=== PATIENT | female | born 1965 | race Caucasian/White ===

== ENCOUNTER 2025-06-03 15:12 | Outpatient (AMB) | payer OTHER, SELFPAY ==
--- NOTE | 2025-06-03 15:22 | A.OFFPC_ITS ---
Vital Signs 06/03/25 15:28 06/03/25 16:19 Height 5 ft 2 in Weight 233 lb 8 oz BMI 42.7 BP 98/62 118/68 Blood Pressure Location Lt brachial Lt brachial Position Sitting Sitting Respiration 18 Pulse 78 Pulse Source Pulse Oximeter Temp 96.9 F Temp Source Temporal Artery Scan Pulse Oximetry (%) 93 Oxygen Delivery Method Room Air Intake Visit Reasons: Establish Care Wire Inspector Required: No Accompanied by: Self / Same As Patient Allergies No Known Allergies Allergy (Verified 06/03/25 15:45) Medication List - Last Reconciled 06/03/25 by Dalia Stout PA-C acetaminophen 500 mg PO Q6H PRN albuterol sulfate 90 mcg/actuation (Ventolin HFA) 2 puffs inhalation Q4-6H PRN apixaban (Eliquis) 5 mg PO BID aspirin-omeprazole 81-40 mg 1 tab PO DAILY atorvastatin (Lipitor) 80 mg PO BEDTIME ezetimibe 10 mg PO DAILY fluticasone furoate 50 mcg/actuation inhalation glyburide 5 mg PO BID lisinopril 20 mg PO DAILY meloxicam 15 mg PO DAILY metformin 1,000 mg PO BID metoprolol succinate ER 25 mg PO DAILY omeprazole 40 mg PO BID semaglutide (Ozempic) 0.5 mg subcut QWEEK Tobacco use date assessed: 06/03/25 Dental Screening Dental Screen Date: 06/03/25 Did you have a dental visit in the last 12 months?: Yes Did you have a dental problem in the last 6 months where you did not have access to dental care?: No Was dental information given to patient?: Patient has dentist HPI Establish Care HPI Details 59 year old female coming to the office for the first time. [employer] inn[employer] Donny [id number] was used for the duration of this visit. Presenting for management of multiple chronic conditions and evaluation of new symptoms. The patient reports intermittent episodes of sadness and crying without a clear trigger, but denies any suicidal ideation or self-harm tendencies. The patient has a history of high blood pressure, with current readings slightly lower than usual. The patient has a history of diabetes with an A1c of 7.7%, indicating suboptimal control. She is currently on 0.5 mg of Ozempic, which will be increased to 1 mg. The patient uses an albuterol inhaler up to three times a day, indicating poor control of symptoms. A new inhaler with a steroid component will be added to her regimen. The patient requests retesting for HIV as she is unsure of the initial diagnosis made in 1994. The patient has a history of blood clots in the right leg and lung, diagnosed as a pulmonary embolism in 1994. The patient experiences burning and tingling sensations in her feet, primarily at night, suspected to be diabetic neuropathy. Gabapentin was previously tried without success, and pregabalin will be initiated. The patient reports frequent headaches and poor sleep quality, raising suspicion for sleep apnea. A sleep study will be arranged. The patient reports significant hair loss and will undergo blood work to investigate potential causes. The patient experiences nausea and vomiting, particularly after eating, and has a family history of ulcers. A GI referral and imaging will be arranged.The patient has two gynecological cysts that require removal, but the procedure has been delayed multiple times. [facility] Medical History Heart problem Depression HIV (human immunodeficiency virus infection) Diabetes type 2 Surgical History H/O tubal ligation H/O exploratory laparotomy Hx of appendectomy Social History Household Members: Children Housing: Apartment Alcohol intake: never Patient Tobacco Use Status: Never used Tobacco e-Cigarette/Vaping Use: Never Used Current occupational status: unemployed Cognitive needs: No Hearing needs: Yes Vision needs: Yes Questionnaire PHQ-9 Over the last 2 weeks, how often have you been bothered by any of the following problems? 1. Little interest or pleasure in doing things: not at all 2. Feeling down, depressed, or hopeless: several days 3. Trouble falling or staying asleep, or sleeping too much: several days 4. Feeling tired or having little energy: several days 5. Poor appetite or overeating: not at all 6. Feeling bad about yourself - or that you are a failure or have let yourself or your family down: not at all 7. Trouble concentrating on things, such as reading the newspaper or watching television: not at all 8. Moving or speaking so slowly that other people could have noticed. Or the op posite - being so fidgety or restless that you have been moving around a lot more than usual: not at all 9. Thoughts that you would be better off or of hurting yourself in some way: not at all Total score: 3 Depression Screening Interpretation: Positive Depression Screening Follow-up: Existing condition and In treatment Depression Screening Done: Yes Source: Developed by Drs. Leroy Sams, Luisa Shah, Refugio Epps and colleagues, with an educational yanni from [employer]. Thrive Questionnaire Date Thrive assessed: 06/03/25 I am a: Patient What is your living situation today?: I have a steady place to live Within the past 12 months, did the food you bought not last and you didn't have the money to get more?: Never true Within the past 12 months, did you worry whether your food would run out before you got money to buy more?: Never true Do you have trouble paying for medicines?: No Do you have trouble getting transportation to medical appointments?: No Do you have trouble paying your heating and electricity bill?: No Do you have trouble taking care of your child, family member or friend?: No Do you have trouble with day-to-day activities such as bathing, preparing meals, shopping, managing finances, etc.?: No Are you currently unemployed and looking for a job?: No Are you interested in more education?: No Please select the resources that you would like help with: None Currently or been in a relationship where the following occur: I choose not to answer THRIVE Score: 0 AUDIT C Alcohol Use Questionnaire (AUDIT-C) 1. How often do you have a drink containing alcohol?: Never Total Score: 0 TARIQ-7 AMB Questionnaire TARIQ-7 Date TARIQ - 7 assessed: 06/03/25 Feeling nervous, anxious, or on edge: 0 = Not at all Not being able to stop or control worryin = Not at all Worrying too much about different things: 0 = Not at all Trouble relaxin = Not at all Being so restless that it is hard to sit still: 0 = Not at all Becoming easily annoyed or irritable: 0 = Not at all Feeling afraid as if something awful might happen: 0 = Not at all Total TARIQ-7 score (0-4 normal; 5-9 mild; 10-14 moderate; 15-21 severe): 0 Source: Developed by Drs. Leroy Sams, Luisa Shah, Refugio Epps and colleagues, with an educational yanni from [employer]. TARIQ-7 Assessment Billing TARIQ-7 Assessment Tool: TARIQ-7 Assessment 02017 Review of Systems Const Denies body aches, Denies chills, Denies fever(s), Denies headache(s) and Denies poor appetite Eyes Reports no additional complaints ENT Denies dysphagia, Denies dizziness, Denies headache(s) and Denies odynophagia Card Denies chest pain, Denies syncope, Denies edema, Denies irregular heart rhythm, Denies lightheadedness, Denies dyspnea and Reports dyspnea on exertion Resp Denies cough, Denies dyspnea and Reports dyspnea on exertion GI Denies abdominal pain, Denies constipation, Denies dysphagia, Reports dyspepsia, Reports heartburn, Denies diarrhea, Denies nausea, Denies odynophagia and Denies vomiting Reports no additional complaints Musc Reports no additional complaints and Denies abnormal gait Skin/Breast Reports system reviewed and no additional complaints, except as documented Neuro Denies abnormal gait, Denies dizziness, Denies syncope and Denies headache(s) Psych Reports no additional complaints Physical exam (Primary Care) Vital Signs: Last Vital Signs Temp 96.9 F 06/03/25 15:28 Pulse 78 06/03/25 15:28 Resp 18 06/03/25 15:28 BP 118/68 06/03/25 16:19 Pulse Ox 93 06/03/25 15:28 Oxygen Delivery Method Room Air 06/03/25 15:28 BMI result Body Mass Index 42.7 Tobacco/Smoking Status: Tobacco use Status Tobacco use date assessed 06/03/25 06/03/25 15:43 Patient Tobacco Use Status Never used Tobacco 06/03/25 15:43 e-Cigarette/Vaping Use Never Used 06/03/25 15:43 PHQ-9: PHQ-9 Score PHQ-9: Total score 3 06/03/25 16:17 Depression Screening Interpretation: Positive Depression Screening Follow-up: Existing condition and In treatment Thrive Assessment: Date of Thrive Assessment Date Thrive assessed 06/03/25 06/03/25 15:49 Currently or been in a relationship where the following occur: I choose not to answer Const General: cooperative, healthy appearing, comfortable and no acute distress Orientation/consciousness: patient oriented x3 HENMT Head: Yes normocephalic Ears: hearing grossly normal bilaterally General nose exam: Normal external nose present Eyes General: appearance normal, both eyes and all related structures Conjunctivae: conjunctivae normal Neck Neck: Yes full ROM and Yes no lymphadenopathy Resp Effort & Inspection: normal respiratory effort Auscultation: clear to auscultation bilaterally, no crackles, no rales, no rhonchi and no wheezes Cardio Rate: regular rate Rhythm: regular rhythm Skin General skin exam: no rashes or lesions noted Neuro General: patient oriented x3 Gait exam (Neuro): Normal gait present Extrem General: Yes normal to inspection, Yes full ROM and No edema Psych Affect: normal affect Attitude: cooperative Insight: Good insight present (Psych) Judgement: Good judgement present (Psych) Results AMB Hemoglobin A1c AMB Hemoglobin A1c 7.7 % Last Edit by JENIFER Mcrae on 06/03/25 16 :18 Results Reviewed Results Reviewed: Laboratory Last Values Hgb A1c (Clinic) 7.7 % (4.0-6.0) H 06/03/25 16:17 Coding Level of Care Code New Pt Level 4 (11806) Diagnoses Asthma J45.909 Hypercholesteremia E78.00 Diabetes type 2 E11.9 Depression F32.A HIV (human immunodeficiency virus infection) Z21 Hypertension I10 Pulmonary embolism I26.99 GERD (gastroesophageal reflux disease) K21.9 Hypersomnolence G47.10 Neuropathy G62.9 Morbid obesity E66.01 Additional Codes TARIQ-7 Assessment Billing - TARIQ-7 Assessment Tool: TARIQ-7 Assessment 90432 ([id number]) Assessment & Plan Assessment & Plan (1) Asthma: Code(s): J45.909 - Unspecified asthma, uncomplicated Category: Medical Plan: Asthma is not well controlled with albuterol alone plan to add ICS to medication regimen and follow up in two months. Continue on albuterol as needed.? Avoid triggers such as allergies. (2) Hypercholesteremia: Code(s): E78.00 - Pure hypercholesterolemia, unspecified Category: Medical Plan: Avoid foods that are high in cholesterol such as red meat, fried foods, eggs and baked goods. Triglyceride goal of less than 150 and LDL goal of less than 100. Continue on Atorvastatin and Zetia (3) Diabetes type 2: Code(s): E11.9 - Type 2 diabetes mellitus without complications Category: Medical Plan: Decrease the amount of carbohydrates such as pasta, bread, rice, and potatoes and limit the amount of sweets. Although fruits are generally healthy they should be eaten in moderation as they are still high in sugar. Hemoglobin A1c goal of less than 7%. A1c not controlled in the office today recommend increasing Ozempic to 1 mg and following up in 3 months. (4) Depression: Code(s): F32.A - Depression, unspecified Category: Medical Plan: Feels well managed without medication at this time. Referral was placed to counseling today (5) HIV (human immunodeficiency virus infection): Code(s): Z21 - Asymptomatic human immunodeficiency virus [HIV] infection status Category: Medical Plan: Patient is requesting additional testing for HIV given the diagnosis was many years ago. Orders were placed today. (6) Hypertension: Code(s): I10 - Essential (primary) hypertension Category: Medical Plan: Continue on current blood pressure medication. Avoid salt intake and encourage healthy diet and regular exercise. (7) Pulmonary embolism: Comment: 1994 PE and DVT Code(s): I26.99 - Other pulmonary embolism without acute cor pulmonale Category: Medical Plan: History of PE and DVT in 1994 and was started on Eliquis at that time and was continued on this medication. Plan to obtain these records. (8) GERD (gastroesophageal reflux disease): Code(s): K21.9 - Gastro-esophageal reflux disease without esophagitis Category: Medical Plan: Avoid trigger foods such as citrus, tomato products, soda, caffeine, spicy foods and other foods that may be irritating to your stomach. Avoid laying flat 3-4 hours after eating and elevate the head of the bed 30 degrees to prevent acid from moving into the esophagus. Continue on Omeprazole. Plan for upper GI series and referral was placed to GI at patient request (9) Hypersomnolence: Code(s): G47.10 - Hypersomnia, unspecified Category: Medical Plan: Plan to obtain sleep study and blood work for further evaluation (10) Neuropathy: Code(s): G62.9 - Polyneuropathy, unspecified Category: Medical Plan: For neuropathy she has tried gabapentin in the past which was not well tolerated. Plan to trial pregabalin daily for neuropathy symptoms. (11) Morbid obesity: Code(s): E66.01 - Morbid (severe) obesity due to excess calories Category: Medical Plan: Healthy diet and regular exercise is encouraged. Currently on Ozempic for diabetic management and weight loss Plan During the visit, we discussed the management of the patient's chronic conditions, including increasing the Ozempic dose for diabetes and adding a steroid inhaler for asthma. We also addressed the need for retesting HIV, arranging a sleep study for suspected sleep apnea, and referring to specialists for gastrointestinal symptoms and gynecological cysts. The patient was informed about the importance of monitoring blood sugar levels and the potential side effects of new medications. Follow-up appointments and necessary referrals were arranged to ensure comprehensive care. This note was constructed using voice recognition software. While every effort has been made to ensure accuracy and photographic intelligence officer, still areas may have been included sometimes these areas may affect the content or meeting of the given symptoms. Total time spent caring for the patient today was 30 minutes. This includes time spent before the visit reviewing the chart, time spent during the visit, and time spent after the visit and documentation. Patient was informed and verbally consented to the use of an ambient scribe for clinic note documentation during this visit. Orders: Orders HIV Ab/Ag 06/03/25 Z21 - Asymptomatic human immunodeficiency virus [HIV] infection status TSH reflex Free T4 06/03/25 Z13.29 - Encounter for screening for other suspected endocrine disorder Microalbumin, Random (w Creat) 06/03/25 E11.9 - Type 2 diabetes mellitus without complications H pylori Ag Stool 06/03/25 K21.9 - Gastro-esophageal reflux disease without esophagitis Lipid Panel 06/03/25 E78.00 - Pure hypercholesterolemia, unspecified Vitamin B12 and Folate 06/03/25 Z13.21 - Encounter for screening for nutritional disorder Vitamin D 25-OH Total 06/03/25 Z13.21 - Encounter for screening for nutritional disorder Comprehensive Met. Panel 06/03/25 E11.9 - Type 2 diabetes mellitus without complications, Z00.00 - Encounter for general adult medical examination without abnormal findings Complete Blood Count Auto Diff 06/03/25 E11.9 - Type 2 diabetes mellitus without complications, Z00.00 - Encounter for general adult medical examination without abnormal findings IRON PROFILE 06/03/25 L65.9 - Nonscarring hair loss, unspecified RT home sleep study 06/03/25 G47.10 - Hypersomnia, unspecified, R51.9 - Headache, unspecified AMB Hemoglobin A1c 06/03/25 Z13.9 - Encounter for screening, unspecified [place] upper GI series 06/03/25 K21.9 - Gastro-esophageal reflux disease without e sophagitis Referrals Gastroenterology Referral K21.9 - Gastro-esophageal reflux disease without esophagitis, Z12.11 - Encounter for screening for malignant neoplasm of colon Counseling Referral F32.A - Depression, unspecified Medications: New pregabalin 25 mg PO BEDTIME 30 caps 0RF beclomethasone dipropionate 40 mcg/actuation (Qvar RediHaler) 1 inh inhalation BID 10.6 grams 0RF semaglutide (Ozempic) 1 mg (0.75 mL) subcut QWEEK 3 mL 0RF
[2025-06-03 15:28] VITALS: BP 98/62; PULSE 78; RESP 18; TEMP 36.1; O2SAT 93; BMI 42.7
[2025-06-03 16:19] VITALS: BP 118/68
== END 2025-06-03 16:37 | disposition home or self-care (01) ==
LOC: HO.HMCH 15:13
DX: Z13.9 Encounter for screening, unspecified (principal)

== ENCOUNTER → 2025-06-03 15:12 | Outpatient (BNVA) | payer OTHER, SELFPAY | DX: J45.909 Unspecified asthma, uncomplicated (principal); E78.00 Pure hypercholesterolemia, unspecified; F32.A Depression, unspecified; E11.40 Type 2 diabetes mellitus with diabetic neuropathy, unspecified; Z21 Asymptomatic human immunodeficiency virus [HIV] infection status; I10 Essential (primary) hypertension; K21.9 Gastro-esophageal reflux disease without esophagitis; G47.10 Hypersomnia, unspecified; G62.9 Polyneuropathy, unspecified; E66.01 Morbid (severe) obesity due to excess calories; Z86.711 Personal history of pulmonary embolism; Z86.718 Personal history of other venous thrombosis and embolism; Z79.01 Long term (current) use of anticoagulants; Z13.31 Encounter for screening for depression; Z13.39 Encounter for screening examination for other mental health and behavioral disorders | CPT/HCPCS: 83036; 96127; 99202 ==

== ENCOUNTER 2025-07-01 08:06 | Outpatient (REF) | payer OTHER, SELFPAY ==
[2025-07-01 10:24] LABS: MANUAL DIFF FLAG NO
[2025-07-01 10:38] LABS: Hematocrit 37.8 % (37.0-47.0); Hemoglobin 12.0 g/dl (12.0-16.0); Imm Gran Abs Auto 0.01 X10*3/uL (0.00-0.03); Imm Gran Pct Auto 0.3 % (0.0-0.4); Lymphocytes Absolute Auto 1.4 X10*3/uL (1.2-4.9); Mean Corpuscular HGB Conc 31.7 g/dl (31.0-35.0); Mean Corpuscular Hemoglobin 28.6 pg (27.0-33.0); Mean Corpuscular Volume 90.2 fL (80.0-98.0); NRBC Abs Auto 0.000 X10*3/uL (0.0-0.012); NRBC Pct Auto 0.0 /100WBC (0.0-0.2); Platelet Count 252 X10*3/uL (160-400); Red Blood Count 4.19 X10*6/uL (4.20-5.50); White Blood Count 3.9 X10*3/uL (4.8-10.8)
[2025-07-01 11:14] LABS: Alanine Aminotransferase 17 U/L (0-31); Albumin Level 4.3 g/dL (3.5-5.0); Alkaline Phosphatase 51 U/L (39-117); Anion Gap 13 (12-20); Aspartate Amino Transferase 21 U/L (5-31); Blood Urea Nitrogen 15 mg/dL (9-16); Calcium 9.5 mg/dL (8.4-10.2); Carbon Dioxide 24 mmol/L (22-29); Chloride 110 mmol/L (96-108); Cholesterol 105 mg/dL (<200); Estimated Glomerular Filt Rate > 60; HDL Cholesterol 40 mg/dL (>40); Iron 50 mcg/dL (30-160); Percent Iron Saturation 16 % (15-50); Potassium 4.8 mmol/L (3.3-5.1); Sodium 142 mmol/L (135-145); Total Iron Binding Capacity 309 mcg/dL (228-428); Total Protein 7.5 g/dL (6.5-8.0); Triglycerides 69 mg/dL (<150); Unsaturated Iron Binding 259 ug/dL
[2025-07-01 11:29] LABS: Microalbum/Creatinine Ratio Ur 7.7 ug/mg cr (<30)
[2025-07-01 11:55] LABS: Folate 8.4 ng/mL (> or = 4.0); Vitamin B12 245 pg/mL (200-900)
[2025-07-05 19:39] LABS: HIV 1 Antibody POSITIVE (NEGATIVE); HIV 2 Antibody NEGATIVE (NEGATIVE)
== END 2025-07-01 08:07 | disposition home or self-care (01) ==
LOC: HO.LAB 08:06
DX: Z00.00 Encounter for general adult medical examination without abnormal findings (principal); Z13.29 Encounter for screening for other suspected endocrine disorder; Z13.21 Encounter for screening for nutritional disorder; Z21 Asymptomatic human immunodeficiency virus [HIV] infection status; E11.9 Type 2 diabetes mellitus without complications; E78.00 Pure hypercholesterolemia, unspecified; L65.9 Nonscarring hair loss, unspecified; I10 Essential (primary) hypertension; Z79.01 Long term (current) use of anticoagulants; Z79.84 Long term (current) use of oral hypoglycemic drugs; Z79.899 Other long term (current) drug therapy
CPT/HCPCS: 36415; 80053; 80061; 82043; 82306; 82570; 82607; 82746; 83540; 84443; 85025; 86701; 86702; 87389; 99212

== ENCOUNTER 2025-07-01 08:06 | Outpatient (AMB) | payer OTHER, SELFPAY ==
[2025-07-01 08:22] VITALS: BP 110/90; PULSE 73; TEMP 36.2; O2SAT 99; BMI 42.7
--- NOTE | 2025-07-01 08:22 | MHC.PC.OV ---
Vital Signs 07/01/25 08:22 Height 5 ft 2 in Weight 233 lb 6 oz BMI 42.7 BP 110/90 H Blood Pressure Location Lt brachial Position Sitting Pulse 73 Pulse Source Pulse Oximeter Temp 97.1 F Temp Source Temporal Artery Scan Pulse Oximetry (%) 99 Oxygen Delivery Method Room Air Intake Visit Reasons: Med. list Reconciliation Allergies No Known Allergies Allergy (Verified 07/01/25 08:51) Medication List - Last Reconciled 07/01/25 by Dalia Stout PA-C acetaminophen 500 mg PO Q6H PRN albuterol sulfate 90 mcg/actuation (Ventolin HFA) 2 puffs inhalation Q4-6H PRN apixaban (Eliquis) 5 mg PO BID aspirin-omeprazole 81-40 mg 1 tab PO DAILY atorvastatin (Lipitor) 80 mg PO BEDTIME beclomethasone dipropionate 40 mcg/actuation (Qvar RediHaler) 1 inh inhalation BID ezetimibe 10 mg PO DAILY glyburide 5 mg PO BID lisinopril 20 mg PO DAILY metformin 1,000 mg PO BID metoprolol succinate ER 25 mg PO DAILY omeprazole 40 mg PO BID pregabalin 25 mg PO BEDTIME semaglutide (Ozempic) 1 mg (0.75 mL) subcut QWEEK Tobacco use date assessed: 07/01/25 Dental Screening Dental Screen Date: 06/03/25 Did you have a dental visit in the last 12 months?: No Did you have a dental problem in the last 6 months where you did not have access to dental care?: No Was dental information given to patient?: Patient has dentist HPI Med. list Reconciliation HPI Details 59 year old female with past medical history diabetes mellitus, depression, HIV, hypercholesterolemia, asthma, HTN, PE, GERD, neuropathy last seen 05/2025 coming in for acute problem. hourly sign language interpreter [id number] Steve was used for the duration of this visit. Presenting with issues related to medication access and prescription refills. The patient has been unable to obtain her inhaler due to insurance issues, as the pharmacy requires approval from the insurance company. She has not been taking one of her medications for two weeks due to a lack of refills, which were previously managed by Dr. Barrera, her last primary care provider. The patient has a known heart murmur, which has been previously discussed and acknowledged. [facility] Medical History Heart problem Depression HIV (human immunodeficiency virus infection) Diabetes type 2 Surgical History H/O tubal ligation H/O exploratory laparotomy Hx of appendectomy Social History Household Members: Children Housing: Apartment Alcohol intake: never Patient Tobacco Use Status: Never used Tobacco Tobacco use type: Cigarette e-Cigarette/Vaping Use: Never Used Second Hand Smoke Exposure: No Current occupational status: unemployed Cognitive needs: No Hearing needs: Yes Vision needs: Yes Questionnaire Thrive Questionnaire Date Thrive assessed: 06/03/25 I am a: Patient What is your living situation today?: I have a steady place to live Within the past 12 months, did the food you bought not last and you didn't have the money to get more?: Never true Within the past 12 months, did you worry whether your food would run out before you got money to buy more?: Never true Do you have trouble paying for medicines?: No Do you have trouble getting transportation to medical appointments?: No Do you have trouble paying your heating and electricity bill?: No Do you have trouble taking care of your child, family member or friend?: No Do you have trouble with day-to-day activities such as bathing, preparing meals, shopping, managing finances, etc.?: No Are you currently unemployed and looking for a job?: No Are you interested in more education?: No Please select the resources that you would like help with: None Currently or been in a relationship where the following occur: I choose not to answer THRIVE Score: 0 TARIQ-7 AMB Questionnaire TARIQ-7 Date TARIQ - 7 assessed: 06/03/25 Source: Developed by Drs. Leroy Sams, Luisa Shah, Refugio Epps and colleagues, with an educational yanni from [employer]. Review of Systems Const Denies fever(s), Denies headache(s) and Denies poor appetite Eyes Reports no additional complaints ENT Denies dizziness and Denies headache(s) Card Denies chest pain, Denies lightheadedness and Denies dyspnea Resp Denies cough and Denies dyspnea GI Denies abdominal pain, Denies nausea and Denies vomiting Reports no additional complaints Musc Reports no additional complaints and Denies abnormal gait Skin/Breast Reports system reviewed and no additional complaints, except as documented Neuro Denies abnormal gait, Denies dizziness and Denies headache(s) Psych Reports no additional complaints Physical exam (Primary Care) Vital Signs: Last Vital Signs Temp 97.1 F 07/01/25 08:22 Pulse 73 07/01/25 08:22 BP 110/90 H 07/01/25 08:22 Pulse Ox 99 07/01/25 08:22 Oxygen Delivery Method Room Air 07/01/25 08:22 BMI result Body Mass Index 42.7 Tobacco/Smoking Status: Tobacco use Status Tobacco use date assessed 07/01/25 07/01/25 08:31 Patient Tobacco Use Status Never used Tobacco 07/01/25 08:31 Tobacco use type Cigarette 07/01/25 08:31 e-Cigarette/Vaping Use Never Used 07/01/25 08:31 Thrive Assessment: Date of Thrive Assessment Date Thrive assessed 06/03/25 07/01/25 08:31 Currently or been in a relationship where the following occur: I choose not to answer Const General: cooperative, healthy appearing, comfortable and no acute distress Orientation/consciousness: patient oriented x3 HENMT Head: Yes normocephalic Ears: hearing grossly normal bilaterally General nose exam: Normal external nose present Eyes General: appearance normal, both eyes and all related structures Conjunctivae: conjunctivae normal Neck Neck: Yes full ROM and Yes no lymphadenopathy Resp Effort & Inspection: normal respiratory effort Auscultation: clear to auscultation bilaterally, no crackles, no rales, no rhonchi and no wheezes Cardio Rate: regular rate Rhythm: regular rhythm Skin General skin exam: no rashes or lesions noted Neuro General: patient oriented x3 Gait exam (Neuro): Normal gait present Extrem General: Yes normal to inspection, Yes full ROM and No edema Psych Affect: normal affect Attitude: cooperative Insight: Good insight present (Psych) Judgement: Good judgement present (Psych) Coding Level of Care Code Est Pt Level 3 (52982) Diagnoses Hypertension I10 Hypercholesteremia E78.00 Diabetes type 2 E11.9 HIV (human immunodeficiency virus infection) Z21 Assessment & Plan Assessment & Plan (1) Hypertension: Code(s): I10 - Essential (primary) hypertension Category: Medical Plan: Continue on current blood pressure medication. Avoid salt intake and encourage healthy diet and regular exercise. (2) Hypercholesteremia: Code(s): E78.00 - Pure hypercholesterolemia, unspecified Category: Medical Plan: Avoid foods that are high in cholesterol such as red meat, fried foods, eggs and baked goods. Triglyceride goal of less than 150 and LDL goal of less than 100. Reminded about blood work (3) Diabetes type 2: Code(s): E11.9 - Type 2 diabetes mellitus without complications Category: Medical Plan: Decrease the amount of carbohydrates such as pasta, bread, rice, and potatoes and limit the amount of sweets. Although fruits are generally healthy they should be eaten in moderation as they are still high in sugar. (4) HIV (human immunodeficiency virus infection): Code(s): Z21 - Asymptomatic human immunodeficiency virus [HIV] infection status Category: Medical Plan: Patient reports being on Biktarvy however we do need to call the pharmacy and confirm this and prescription can be sent at that time. Discussed with patient typically this is comes from an infectious disease provider Plan During the visit, we discussed the patient's difficulties in obtaining her inhaler due to insurance issues. I assured her that a new prescription has been sent and that we will follow up next month. We also addressed her need for prescription refills, previously managed by Dr. Barrera, and I will contact the pharmacy to ensure all medications are up to date. Additionally, I will reach out to Centralized Scheduling and the GI office to ensure they are aware of her need for an per diem interpreter during calls. This note was constructed using voice recognition software. While every effort has been made to ensure accuracy and broadcast technician, still areas may have been included sometimes these areas may affect the content or meeting of the given symptoms. Total time spent caring for the patient today was 20 minutes. This includes time spent before the visit reviewing the chart, time spent during the visit, and time spent after the visit and documentation. Patient was informed and verbally consented to the use of an ambient scribe for clinic note documentation during this visit. Medications: New fluticasone furoate 100 mcg/actuation (Arnuity Ellipta) 1 inh inhalation DAILY 30 ea 0RF ezetimibe 10 mg PO DAILY 90 tabs 0RF metoprolol succinate ER 25 mg PO DAILY 90 tabs 0RF atorvastatin (Lipitor) 80 mg PO BEDTIME 90 tabs 0RF lisinopril 20 mg PO DAILY 90 tabs 0RF Changed From omeprazole 40 mg PO BID To omeprazole 40 mg PO DAILY Refilled albuterol sulfate 90 mcg/actuation (Ventolin HFA) 2 puffs inhalation Q4-6H PRN 8.5 grams 0RF shortness of breath or wheezing apixaban (Eliquis) 5 mg PO BID 60 tabs 0RF glyburide 5 mg PO BID 180 tabs 0RF metformin 1,000 mg PO BID 180 tabs 0RF Discontinued beclomethasone dipropionate 40 mcg/actuation (Qvar RediHaler) Discontinued Reason: Insurance Denied 1 inh inhalation BID 10.6 grams 0RF
--- OUTSIDE RECORDS SUMMARY | 2025-07-01 08:27 | XMS_ITS | Clinical Summary ---
Author Organization [facility] Address [address] [place] [address] Phone Care Team Providers Care Teletype Clerk Name Role Phone Dalia Stout Primary Care Provider [phone] Allergies No known active allergies Medications No known medications Active Problems No known active problems Encounters Date Type Department Care Team Description 04/14/2025 4:45 PM EDT - 04/14/2025 11:52 PM EDT Emergency [facility] Emergency [address] [place] [address] Misty Pak MD Kokkinos, Erika, MD Bilateral flank pain (Primary Dx) Discharge Disposition: Home or Self Care from Last 3 Months Medical History Medical History Date Comments CAD (coronary artery disease) 01/01/2023 DX :CAD (coronary artery disease) CTEPH (chronic thromboemboli c pulmonary hypertension) ([facility] V24, [facility] V28) 01/01/2023 DX:CTEPH (chronic thromboemb olic pulmonary hypertension) ([facility]) Diabetes mellitus ([facility] V 24, [facility] V28) 01/01/2023 DX:Diabetes mellitus ([facility]) Hyperlipemia 01/01/2023 DX:Hyperlipemia Knee pain 01/01/2023 DX:Knee pain Severe obesity ([facility] V24, [facility] V28) 01/01/2023 DX:Severe obesity ([facility]) Anxiety 01/01/2023 DX:Anxiety Social History Tobacco Use Types Packs/Day Years Used Date Smoking Tobacco: Never Assessed Smokeless Tobacco: Never Alcohol Use Standard Drinks/Week Comments Never 0 (1 standard drink = 0.6 oz pur e alcohol) Comments Unknown Sex and Gender Information Value Date Recorded Sex Assigned at Not on file Legal Sex Female 1:47 AM EST Gender Identity Not on file Sexual Orientation Not on file Obstetrics History Last Filed Vital Signs Vital Sign Reading Time Taken Comments Blood Pressure 129/57 04/14/2025 9:47 PM EDT Pulse 98 04/14/2025 9:47 PM EDT Temperature 37 C (98.6 F) 04/14/2025 9:47 PM EDT Respiratory Rate 18 04/14/2025 9:47 PM EDT Oxygen Saturation 98% 04/14/2025 9:47 PM EDT Inhaled Oxygen Concentration - - Weight 103 kg (228 lb) 04/14/2025 2:18 PM EDT Height 157.5 cm (5' 2 ) 04/14/2025 2:18 PM EDT Body Mass Index 41.7 04/14/2025 2:18 PM EDT Plan of Treatment Health Maintenance Due Date Last Done Comments Breast Cancer Screening 1965 Colorectal Cancer Screening: Colonoscopy 1965 Diabetes: Annual Foot Exam 1975 Diabetes: Annual Retina Eye Exam 1975 Cervical Cancer Screening: Pap Smear 1986 RSV Immunization Adult Patients (1 - Risk 50-74 years 1-dose series) 2015 Cholesterol Screening (Lipid Panel) 08/12/2022 HIV Screening 08/12/2022 Hepatitis C Screening 08/12/2022 Social Influencers of Health Screening 08/12/2022 Zoster Vaccines (2 of 2) 08/29/2022 07/04/2022 Diabetes: Annual Urine Albumin-Creatinine Ratio (uACR) 10/24/2023 Diabetes: Blood Sugar Control Test (HGBA1C) 10/24/2023 Depression Screening 09/09/2024 COVID-19 Vaccine ( season) 2025 Influenza Vaccine (#1) 2025 , 10/04/2022, 05/18/2020, Additional history exists Diabetes: Annual GFR (Glomerular Filtration Rate) 04/14/2026 04/14/2025, 03/16/2025 Hypertension/CHF/CAD Annual BMP Blood Test 04/14/2026 04/14/2025, 03/16/2025 DTaP,Tdap,and Td Vaccines (4 - Td or Tdap) 07/22/2030 07/22/2020, 12/20/2001, 04/30/2001 Hepatitis A Vaccines Completed 10/02/2004, 04/10/2004, 01/05/2004 Hepatitis B Vaccines Completed 10/02/2004, 04/10/2004, 01/05/2004 Pneumococcal Vaccine: 50+ Years Completed 10/04/2022, 10/29/2011, 04/30/2001 HIB Vaccines Aged Out No longer eligi ble based on patient's age to complete this topic HPV Vaccines Aged Out No longer eligi ble based on patient's age to complete this topic IPV Vaccines Aged Out No longer eligi ble based on patient's age to complete this topic MMR Vaccines Aged Out No longer eligi ble based on patient's age to complete this topic Meningococcal ACWY Vaccine Aged Out N o longer eligible based on patient's age to complete this topic Meningococcal B Vaccine Aged Out No l onger eligible based on patient's age to complete this topic RSV Immunization Patients Under 20 months Aged Out No longer eligible based on patient's age to complete this topic Varicella Vaccines Aged Out No longer eligible based on patient's age to complete this topic Procedures Procedure Name Priority Date/Time Associated Diagnosis Comments ECG ANNOTATED 04/15/2025 CT ANGIO CHEST WO AND/OR W CONTRAST STAT 04/14/2025 9:04 PM EDT Bilateral flank pain CT ABDOMEN PELVIS W CONTRAST STAT 04/14/2025 9:04 PM EDT Bilateral flank pain LIPASE STAT 04/14/2025 7:56 PM EDT HEPATIC FUNCTION PANEL STAT 04/14/2025 7:56 PM EDT BASIC METABOLIC PANEL STAT 04/14/2025 7:56 PM EDT US ABDOMEN LIMITED STAT 04/14/2025 5: 54 PM EDT NEFF URINE CULTURE TUBE STAT 04/14/2025 5:20 PM EDT URINALYSIS WITH REFLEX MICROSCOPIC AND CULTURE STAT 04/14/2025 5:20 PM EDT CBC WITH AUTO DIFFERENTIAL STAT 04/14/2025 5:20 PM EDT URINALYSIS WITH REFLEX MICROSCOPIC AND CULTURE STAT 04/14/2025 5:20 PM EDT CBC AND DIFFERENTIAL STAT 04/14/2025 5:20 PM EDT ECG 12-LEAD STAT 04/14/2025 2:08 PM EDT from Last 3 Months Results * ECG-Annotated (04/15/2025) us Provider Onbase MD ECG ORDERABLES Final Result * CT Abdomen Pelvis w Contrast (04/14/2025 9:04 PM EDT) Anatomical Region Laterality Modality Body Computed Tomogra phy 04/14/2025 10:0 3 PM EDT Impressions 04/14/2025 10:03 PM EDT Bilateral nephrolithiasis without obstruction. Unremarkable gallbladder. No acute findings. This document has been electronically signed by: Erich Brizuela MD on 04/14/2025 22:03:16 Narrative 04/14/2025 10:03 PM EDT INDICATION: bilateral flank pain; hx bilateral pe; concern for possible pyelo/ureteral stone vs cholecystitis? CT abdomen and pelvis with contrast Comparison: US - US ABD LIMITED - 04/14/25 17:37 EDT Findings: See same day CT angiogram of the chest. The gallbladder and solid organs are within normal limits. Bilateral nephrolithiasis without hydroureteronephrosis or pyelonephritis. No bowel obstruction, pneumoperitoneum, or pneumatosis. Bilateral external iliac lymphadenopathy measuring up to 1.3 cm, nonspecific. Air in the cervix. Correlate with history. Left adnexal calcification. Appendix not visualized although no pericecal inflammatory changes. The bones are intact. Procedure Note Erich Brizuela MD - 04/14/2025 INDICATION: bilateral flank pain; hx bilateral pe; concern for possible pyelo/ureteral stone vs cholecystitis? CT abdomen and pelvis with contrast Comparison: US - US ABD LIMITED - 04/14/25 17:37 EDT Findings: See same day CT angiogram of the chest. The gallbladder and solid organs are within normal limits. Bilateral nephrolithiasis without hydroureteronephrosis or pyelonephritis. No bowel obstruction, pneumoperitoneum, or pneumatosis. Bilateral external iliac lymphadenopathy measuring up to 1.3 cm, nonspecific. Air in the cervix. Correlate with history. Left adnexal calcification. Appendix not visualized although no pericecal inflammatory changes. The bones are intact. IMPRESSION: Bilateral nephrolithiasis without obstruction. Unremarkable gallbladder. No acute findings. This document has been electronically signed by: Erich Brizuela MD on 04/14/2025 22:03:16 Misty Pak MD IMG CT PROCEDURES Final Result * CT Angio Chest wo and/or w Contrast (04/14/2025 9:04 PM EDT) Anatomical Region Laterality Modality Body Computed Tomogra phy 04/14/2025 10:1 5 PM EDT Impressions 04/14/2025 10:15 PM EDT Chronic-appearing bilateral pulmonary emboli, right heart strain, and enlarged pulmonary trunk can be seen in chronic thromboembolic pulmonary hypertension. No acute-appearing pulmonary emboli, although comparison with prior imaging if available would be helpful. This document has been electronically signed by: Erich Brizuela MD on 04/14/2025 22:15:18 Narrative 04/14/2025 10:15 PM EDT INDICATION: bilateral flank pain; hx bilateral pe; concern for possible pyelo/ureteral stone vs cholecystitis? CT angiography chest with contrast. 3D Postprocessing. Comparison: None provided Findings: The heart is normal size. RV/LV ratio elevated to 1.3 The thoracic aorta is normal caliber. Bilateral chronic-appearing pulmonary emboli in the left upper and left lower lobes in the right upper, middle, and lower lobes. Webbed appearance suggests chronicity. Enlarged pulmonary trunk. The visualized thyroid and mediastinum are unremarkable. No consolidation or effusion. See same day CT of the abdomen and pelvis. The bones are intact. Procedure Note Erich Brizuela MD - 04/14/2025 INDICATION: bilateral flank pain; hx bilateral pe; concern for possible pyelo/ureteral stone vs cholecystitis? CT angiography chest with contrast. 3D Postprocessing. Comparison: None provided Findings: The heart is normal size. RV/LV ratio elevated to 1.3 The thoracic aorta is normal caliber. Bilateral chronic-appearing pulmonary emboli in the left upper and left lower lobes in the right upper, middle, and lower lobes. Webbedappearance suggests chronicity. Enlarged pulmonary trunk. The visualized thyroid and mediastinum are unremarkable. No consolidation or effusion. See same day CT of the abdomen and pelvis. The bones are intact. IMPRESSION: Chronic-appearing bilateral pulmonary emboli, right heart strain, and enlarged pulmonary trunk can be seen in chronic thromboembolic pulmonary hypertension. No acute-appearing pulmonary emboli, although comparison with prior imaging if available would be helpful. This document has been electronically signed by: Erich Brizuela MD on 04/14/2025 22:15:18 us Misty Pak MD IMG CT PROCEDURES Final Result * Lipase (04/14/2025 7:56 PM EDT) [facility] Lipase 54 13 - 75 unit/L LAB CHEMISTRY METHOD 04/14/2025 8:35 PM EDT [facility] Blood Venous blood specimen / Unknown Venipuncture / Unknown 04/14/2025 7:56 PM EDT 04/14/2025 8:04 PM EDT us Misty Pak MD LAB BLOOD ORDERABLES Final Resul t [facility] [address] [place] [address], [place] [phone] * Hepatic Function Panel (04/14/2025 7:56 PM EDT) [facility] Total Protein 7.2 6.0 - 8.0 g/dL LAB CHEMISTRY METHOD 04/14/2025 8:35 PM EDT [facility] Albumin 3.7 3.2 - 5.0 g/dL LAB CHEMISTRY METHOD 04/14/2025 8:35 PM EDT [facility] Total Bilirubin 0.3 0.0 - 1.4 mg/dL LAB CHEMISTRY METHOD 04/14/2025 8:35 PM EDT [facility] Bilirubin, Direct <0.1 0.0 - 0.3 mg/dL LAB CHEMISTRY METHOD 04/14/2025 8:35 PM EDT [facility] Bilirubin, Indirect LAB CHEMISTRY METHOD 04/14/2025 8:35 PM EDT [facility] Comment:Unable to calculate Indirect Bilirubin. ALT (SGPT) 12 10 - 60 unit/L LAB CHEMISTRY METHOD 04/14/2025 8:35 PM EDT [facility] AST (SGOT) 13 10 - 42 unit/L LAB CHEMISTRY METHOD 04/14/2025 8:35 PM EDT [facility] Alkaline Phosphatase 50 42 - 121 unit/L LAB CHEMISTRY METHOD 04/14/2025 8:35 PM EDT [facility] Blood Venous blood specimen / Unknown Venipuncture / Unknown 04/14/2025 7:56 PM EDT 04/14/2025 8:04 PM EDT us Misty Pak MD LAB BLOOD ORDERABLES Final Resul t [facility] [address] [place] [address], * (ABNORMAL) Basic Metabolic Panel (BMP) (04/14/2025 7:56 PM EDT) Sodium 140 133 - 145 mmol/L LAB CHEMISTRY METHOD 04/14/2025 8:37 PM EDT [facility] Potassium 3.7 3.5 - 5.5 mmol/L LAB CHEMISTRY METHOD 04/14/2025 8:37 PM EDT [facility] Chloride 109 96 - 110 mmol/L LAB CHEMISTRY METHOD 04/14/2025 8:37 PM EDT [facility] CO2 27 21 - 32 mmol/L LAB CHEMISTRY METHOD 04/14/2025 8:37 PM EDT [facility] Anion Gap 4 3 - 11 LAB CHEMISTRY METHOD 04/14/2025 8:37 PM EDT [facility] Glucose 54(L) 70 - 100 mg/dL LAB CHEMISTRY METHOD 04/14/2025 8:37 PM EDT [facility] BUN 12 5 - 25 mg/dL LAB CHEMISTRY METHOD 04/14/2025 8:37 PM EDT [facility] Creatinine 0.94 0.50 - 1.10 mg/dL LAB CHEMISTRY METHOD 04/14/2025 8:37 PM EDT [facility] eGFR 70 >=60 mL/min/1. 73m2 LAB CHEMISTRY METHOD 04/14/2025 8:37 PM EDT [facility] Comment:Calculation based on the Chronic Kidney Disease Epidemiology Collaboration (CKD-EPI) equation refit without adjustment for race. BUN/Creatinine Ratio 12.8 LAB CHEMISTRY METHOD 04/14/2025 8:37 PM EDT [facility] Calcium 9.1 8.5 - 10.5 mg/dL LAB CHEMISTRY METHOD 04/14/2025 8:37 PM EDT [facility] Blood Venous blood specimen / Unknown Venipuncture / Unknown 04/14/2025 7:56 PM EDT 04/14/2025 8:04 PM EDT us Misty Pak MD LAB BLOOD ORDERABLES Final Resul t [facility] [address] [place] [address], [place] [phone] * US Abdomen Limited (04/14/2025 5:54 PM EDT) Anatomical Region Laterality Modality Body Ultrasound 04/14/2025 6:12 PM EDT Impressions 04/14/2025 6:12 PM EDT Impression: 1. Mild hepatomegaly and evidence of mild hepatic steatosis. 2. Possible 4 mm nonobstructing right renal calculus. This document has been electronically signed by: Po Russo MD on 04/14/2025 18:12:06 Narrative 04/14/2025 6:12 PM EDT INDICATION: RUQ pain, cholecystitis suspected US limited to right upper quadrant Comparison: None Findings: Liver is mildly enlarged and reveals mild increased echogenicity, suggesting mild steatosis.. No focal hepatic lesions. No intrahepatic ductal dilatation. Right lobe length measures 18.5 cm. Portal vein reveals hepatopetal flow. Common bile duct measures 2 mm. Gallbladder appears unremarkable. No sonographic Fisher's sign. Right kidney is normal texture. No hydronephrosis. Right renal length is 10.4 cm. A slightly shadowing echogenic interpolar focus measuring up to 4 mm may represent nonobstructing calculus. Procedure Note Po Russo MD - 04/14/2025 INDICATION: RUQ pain, cholecystitis suspected US limited to right upper quadrant Comparison: None Findings: Liver is mildly enlarged and reveals mild increased echogenicity, suggesting mild steatosis.. No focal hepatic lesions. No intrahepatic ductal dilatation. Right lobe length measures 18.5 cm.Portal vein reveals hepatopetal flow. Common bile duct measures 2 mm. Gallbladder appears unremarkable. No sonographic Fisher's sign. Right kidney is normal texture. No hydronephrosis. Right renal length is 10.4 cm. A slightly shadowing echogenic interpolar focus measuring up to4 mm may represent nonobstructing calculus. IMPRESSION: Impression: 1. Mild hepatomegaly and evidence of mild hepatic steatosis. 2. Possible 4 mm nonobstructing right renal calculus. This document has been electronically signed by: Po Russo MD on 04/14/2025 18:12:06 us Misty Pak MD IMG US PROCEDURES Final Result * Urinalysis with reflex microscopic and culture (04/14/2025 5:20 PM EDT) Specific [place] Urine 1.007 1.003 - 1.030 LAB URINALYSIS - AUTOMATED METHOD 04/14/2025 6:03 PM EDT [facility] pH, Urine 7.5 5.0 - 8.0 pH LAB URINALYSIS - AUTOMATED METHOD 04/14/2025 6:03 PM EDT [facility] Leukocytes, Urine Negative Negative LAB URINALYSIS - AUTOMATED METHOD 04/14/2025 6:03 PM EDT [facility] Nitrite, Urine Negative Negative LAB URINALYSIS - AUTOMATED METHOD 04/14/2025 6:03 PM EDT [facility] Protein, Urine Negative <=Trace mg/dL LAB URINALYSIS - AUTOMATED METHOD 04/14/2025 6:03 PM EDT [facility] Glucose, Urine Negative Negative mg/dL LAB URINALYSIS - AUTOMATED METHOD 04/14/2025 6:03 PM [facility] Ketones, Urine Negative Negative mg/dL LAB URINALYSIS - AUTOMATED METHOD 04/14/2025 6:03 PM [facility] Urobilinogen, Urine 0.2 0.2 - 1.0 mg/dL LAB URINALYSIS - AUTOMATED METHOD 04/14/2025 6:03 PM [facility] Bilirubin, Urine Negative Negative LAB URINALYSIS - AUTOMATED METHOD 04/14/2025 6:03 PM [facility] Blood, Urine Negative Negative LAB URINALYSIS - AUTOMATED METHOD 04/14/2025 6:03 PM [facility] Urine Urine specimen obtained by clean catch procedure / Unknown Non-blood Collection / Unknown 04/14/2025 5:20 PM EDT 04/14/2025 5:58 PM EDT us Misty Pak MD LAB URINE ORDERABLES Final Resul t [facility] [address] [place] [address], [place] [phone] * Neff urine culture tube (04/14/2025 5:20 PM EDT) Extra Tube Hold for add-ons. 04/14/2025 7:01 PM EDT [facility] Comment:Auto resulted. Urine Urine specimen obtained by clean catch procedure / Unknown Non-blood Collection / Unknown 04/14/2025 5:20 PM EDT 04/14/2025 5:58 PM EDT us Misty Pak MD LAB URINE ORDERABLES Final Resul t [facility] [address] [place] [address], [place] [phone] * (ABNORMAL) CBC auto differential (04/14/2025 5:20 PM EDT) WBC 4.6(L) 4.8 - 10.8 K/mcL LAB HEMETOLOGY METHOD 04/14/2025 6:12 PM EDT [facility] RBC 3.80 3.80 - 4.80 M/mcL LAB HEMETOLOGY METHOD 04/14/2025 6:12 PM EDT [facility] Hemoglobin 11.2(L) 11.5 - 16.0 g/dL LAB HEMETOLOGY METHOD 04/14/2025 6:12 PM EDT [facility] Hematocrit 34.9(L) 35.0 - 47.0 % LAB HEMETOLOGY METHOD 04/14/2025 6:12 PM EDT [facility] MCV 90.9 79.0 - 98.0 FL LAB HEMETOLOGY METHOD 04/14/2025 6:12 PM EDT [facility] MCH 29.2 27.0 - 32.0 pcg LAB HEMETOLOGY METHOD 04/14/2025 6:12 PM EDT [facility] MCHC 32.1 32.0 - 37.0 g/dL LAB HEMETOLOGY METHOD [facility] RDW 15.4(H) 11.0 - 15.0 % LAB HEMETOLOGY METHOD 04/14/2025 6:12 PM EDT [facility] Platelets 264 130 - 400 K/mcL LAB HEMETOLOGY METHOD 04/14/2025 6:12 PM [facility] MPV 10.5 7.0 - 11.0 FL LAB HEMETOLOGY METHOD 04/14[facility]2025 6[facility] NRBC 0.0 <1.0 % LAB HEMETOLOGY METHOD 04/14[facility]2025 6:[facility] NRBC Absolute 0.00 <0.10 K/mcL LAB HEMETOLOGY METHOD 04/14/2025 6:12 PM [facility] Neutrophils Relative 49.6 % LAB HEMETOLOGY METHOD 04/14/2025 6:12 PM [facility] Lymphocytes Relative 36.1 % LAB HEMETOLOGY METHOD 04/14/2025 6:12 PM [facility] Monocytes Relative 7.2 % LAB HEMETOLOGY METHOD 04/14/2025 6:12 PM [facility] Eosinophils Relative 5.4 % LAB HEMETOLOGY METHOD 04/14/2025 6:12 PM [facility] Basophils Relative 1.5 % LAB HEMETOLOGY METHOD 04/14/2025 6:12 PM [facility] Immature Granulocytes Relative 0.2 % LAB HEMETOLOGY METHOD 04/14/2025 6:12 PM [facility] Neutrophils Absolute 2.28 1.50 - 7.00 K/mcL LAB HEMETOLOGY METHOD 04/14/2025 6:12 PM [facility] Lymphocytes Absolute 1.66 1.00 - 5.00 K/mcL LAB HEMETOLOGY METHOD 04/14/2025 6:12 PM [facility] Monocytes Absolute 0.33 0.20 - 1.00 K/mcL LAB HEMETOLOGY METHOD 04/14/2025 6:12 PM EDT [facility] Eosinophils Absolute 0.25 0.00 - 0.50 K/mcL LAB HEMETOLOGY METHOD 04/14/2025 6:12 PM EDT [facility] Basophils Absolute 0.07 0.00 - 0.20 K/mcL LAB HEMETOLOGY METHOD 04/14/2025 6:12 PM EDT [facility] Immature Granulocytes Absolute 0.01 0.00 - 0.03 K/mcL LAB HEMETOLOGY METHOD 04/14/2025 6:12 PM EDT [facility] Blood Venous blood specimen / Unknown Venipuncture / Unknown 04/14/2025 5:20 PM EDT 04/14/2025 5:57 PM EDT Misty Pak MD LAB BLOOD ORDERABLES Final Resul t [facility] [address] [place] [address], * ECG 12 lead (04/14/2025 2:08 PM EDT) Ventricular Rate ECG 90 BPM GEMUSE Atrial Rate 90 BPM GEMUSE P-R Interval 134 ms GEMUSE QRS Duration 98 ms GEMUSE Q-T Interval 390 ms GEMUSE QTc 477 ms GEMUSE P Wave [place] 71 degrees GEMUSE R [place] 121 degrees GEMUSE T [place] -28 degrees GEMUSE ECG Interpretation Normal sinus rhythm Incomplete right bundle branch block Right ventricular hypertrophy with repolarization abnormality T wave abnormality, consider inferior ischemia Abnormal ECG When compared with ECG of 16-MAR-2025 09:24, Incomplete right bundle branch block is now Present Confirmed by Lily RAMÍREZ JAMES ([id number]) on 04/14/2025 6:45:32 PM GEMUSE 04/14/2025 2:08 PM EDT 04/14/2025 6:45 PM EDT us Misty Pak MD ECG ORDERABLES Final Result GEMUSE from Last 3 Months Insurance [facility] [place] [address] Care Teams Teletype Clerk Relationship Specialty Start Date End Date Dalia Stout PA [address] [place] [address] PCP - General 04/14/25
== END 2025-07-01 09:36 | disposition home or self-care (01) ==
LOC: HO.HMCH 08:06
DX: I10 Essential (primary) hypertension (principal); E78.00 Pure hypercholesterolemia, unspecified; E11.9 Type 2 diabetes mellitus without complications; Z21 Asymptomatic human immunodeficiency virus [HIV] infection status

== ENCOUNTER 2025-07-14 13:26 | Outpatient (AMB) | payer OTHER, SELFPAY ==
--- NOTE | 2025-07-14 13:38 | MHC.OFFVIS ---
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 Patient had high-grade COCO Pap smear in end of 2022, had a colposcopy by Dr. Anastacia Lancaster at [facility], biopsy report not available but there is no mentioning that biopsy was PILAR 3 and the patient was consented for cold knife cone few months ago and lost to follow up [facility] Medical History Heart problem Depression HIV (human immunodeficiency virus infection) Diabetes type 2 Surgical History H/O tubal ligation H/O exploratory laparotomy Hx of appendectomy Family History Mother Diabetes Maternal Aunt Leukemia Social History Household Members: Children Housing: Apartment Alcohol intake: never Patient Tobacco Use Status: Never used Tobacco Tobacco use type: Cigarette e-Cigarette/Vaping Use: Never Used Second Hand Smoke Exposure: No Use of substances other than those prescribed or required for medical reasons: No Current occupational status: disabled Sexually active: No Sexual orientation: Straight/Heterosexual Gender identity: Female Cognitive needs: No Hearing needs: Yes Vision needs: Yes Female Reproductive History Menstrual Menopause type: natural Total pregnancies: 3 Full term: 3 Number of Living Children: 3 Review of Systems Const All systems reviewed & are unremarkable except as noted in HPI and below Physical Exam Vital Signs: Last Vital Signs BP 114/70 07/14/25 13:41 BMI result Body Mass Index 43.9 General: Yes no CVA tenderness External Female Exam: normal external appearance and normal appearance of the urethra Speculum Exam - Vagina: normal appearance of the vagina, normal palpation, no lesions and no masses Speculum Exam - Cervix: normal appearance of the cervix, normal palpation, no lesions, no masses and nontender Bimanual exam- vagina & uterus: normal bimanual exam, normal palpation, uterine size normal, normal palpation, uterine shape normal, No Cervical tenderness present and non-tender Bimanual Exam- Adnexa, other: normal adnexae Back/Spine/Pelvis Back: no CVA tenderness Assessment & Plan Assessment & Plan (1) 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 However, the patient agreed to be referred back to Dr. Anisha baldwin since she is on Eliquis, and will be a better surgical candidate for a tertiary care center where more resources are available. An appointment at Dr. Anisha baldwin was scheduled on 09/30/25, the patient is aware Explained to the patient timing of the essence and the importance of treatment of PILAR 3 , the risk of progression to cancer if untreated or the treatment is really The patient verbalized understanding especially the urgency of her clinical situation and agreed with the plan. Instructed the patient to call our office back in case a referral appointment is not scheduled, missed or canceled so that we will assist on rescheduling another appointment, the patient verbalized understanding agreed with the plan. 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
[2025-07-14 13:41] VITALS: BP 114/70; BMI 43.9
== END 2025-07-14 14:31 | disposition home or self-care (01) ==
LOC: HO.HWS 13:26
PROVIDERS: Visit Provider Obstetrics & Gynecology
DX: D06.9 Carcinoma in situ of cervix, unspecified (principal)
CPT/HCPCS: 99203

== ENCOUNTER → 2025-07-14 13:26 | Outpatient (BNVA) | payer OTHER, SELFPAY | PROVIDERS: Visit Provider Obstetrics & Gynecology | DX: Z71.2 Person consulting for explanation of examination or test findings (principal); D25.9 Leiomyoma of uterus, unspecified | CPT/HCPCS: 99202 ==